=== PATIENT | female | born 1990 | race Two or more races ===

== ENCOUNTER 2022-07-26 09:37 | Inpatient (IN) | payer BC ==
[2022-07-26] MEDS ORDERED: Sodium Chloride 0.9% 10 ML Syringe FLUSH PRN (10:35)
[2022-07-26] MEDS ORDERED: Nalbuphine 10 MG/0.5 ML Syringe IVPUSH PRN (10:35)
[2022-07-26] MEDS ORDERED: Oxytocin/Lactated Ringers 10 UNIT/1,000 ML BAG IV SCH ×3 (10:45→17:01)
[2022-07-26] MEDS ORDERED: Magnesium Sulfate/Water 4 GM in Premix Bag 1 BAG IV ONE (11:26)
[2022-07-26] MEDS ORDERED: Calcium Gluconate 10% 1 GM/10 ML SDV IV PRN (11:26)
[2022-07-26] MEDS ORDERED: Acetaminophen 325 MG Tab PO PRN ×2 (11:29→17:01)
[2022-07-26] MEDS: Lactated Ringers 1,000 ML IV SCH ×4 (12:37→23:06)
[2022-07-26] MEDS: Magnesium Sulfate/Water 40 GM/1,000 ML BAG IV SCH (12:48)
[2022-07-26] MEDS ORDERED: ePHEDrine 50 MG/ML SDV IVPUSH PRN (13:28)
[2022-07-26] MEDS ORDERED: diphenhydrAMINE 50 MG/ML SDV IVPUSH PRN (13:28)
[2022-07-26] MEDS ORDERED: fentaNYL 100 MCG/2 ML SDV EPIDUR PRN (13:28)
[2022-07-26] MEDS ORDERED: Bupivacaine/fentaNYL/NS 100 ML Bag EPIDUR PRN (13:28)
[2022-07-26] MEDS ORDERED: HYDROmorphone 0.5 MG/0.5 ML Syringe ONE (15:15)
[2022-07-26] MEDS ORDERED: Magnesium Hydroxide 400 MG/5 ML Susp 30 ML Cup PO PRN (17:01)
[2022-07-26] MEDS ORDERED: Docusate Sodium 100 MG Cap PO PRN (17:01)
[2022-07-26] MEDS ORDERED: Hydrocortisone Acetate 25 MG Supp RECTAL PRN (17:01)
[2022-07-26] MEDS ORDERED: Witch Hazel Medicated Pads 40/Jar TOP PRN (17:01)
[2022-07-26] MEDS ORDERED: Ibuprofen 600 MG Tab PO PRN (17:01)
[2022-07-26] MEDS ORDERED: Benzocaine/Menthol 20%-0.5% Spray 78 GM Cannister TOP PRN (17:01)
[2022-07-26] MEDS ORDERED: Sodium Chloride 0.9% 10 ML Syringe FLUSH SCH (21:00)
[2022-07-27] MEDS: Magnesium Sulfate/Water 40 GM/1,000 ML BAG IV SCH (08:43)
[2022-07-27] MEDS ORDERED: Prenatal Multivitamin with Calcium/Folic Acid/Iron Tab PO SCH (09:00)
[2022-07-27] MEDS: Lactated Ringers 1,000 ML IV SCH (12:27)
[2022-07-27] MEDS ORDERED: Ropivacaine 0.2% PF 2 MG/ML 20 ML SDV ONE (16:00)
[2022-07-28] MEDS ORDERED: diphenhydrAMINE 50 MG/ML SDV IV ONE (02:20)
[2022-07-28] MEDS ORDERED: Sodium Chloride 0.9% 1,000 ML IV SCH (02:30)
[2022-07-28] MEDS ORDERED: Sodium Chloride 0.9% 250 ML ONE (03:43)
== END 2022-07-28 17:47 | disposition home or self-care (01) | DRG 542 ==
LOC: JD.OBCHECK 09:37 → JD.OB 09:40 → JD.OBCHECK 15:35 → OBSVTOIN 15:36 → INTOOBSV 15:36 → UNDOADMOB 15:36 → JD.OB 15:36 → OBSVTOIN 15:54 → JD.OB 15:54
PROVIDERS: ADMIT Obstetrics & Gynecology; ATTEND Obstetrics & Gynecology
PROC: 10E0XZZ Delivery of Products of Conception, External Approach (ICD-10-PCS; principal; 2022-07-26)
PROC: 10907ZC Drainage of Amniotic Fluid, Therapeutic from Products of Conception, Via Natural or Artificial Opening (ICD-10-PCS; 2022-07-26)
PROC: 0UQC7ZZ Repair Cervix, Via Natural or Artificial Opening (ICD-10-PCS; 2022-07-26)
PROC: 3E0R3BZ Introduction of Anesthetic Agent into Spinal Canal, Percutaneous Approach (ICD-10-PCS; 2022-07-26)
PROC: 00HU33Z Insertion of Infusion Device into Spinal Canal, Percutaneous Approach (ICD-10-PCS; 2022-07-26)
PROC: 30233N1 Transfusion of Nonautologous Red Blood Cells into Peripheral Vein, Percutaneous Approach (ICD-10-PCS; 2022-07-28)
DX: O14.14 Severe pre-eclampsia complicating childbirth (principal); Z37.0 Single live birth; O72.1 Other immediate postpartum hemorrhage; O99.62 Diseases of the digestive system complicating childbirth; K21.9 Gastro-esophageal reflux disease without esophagitis; Z87.891 Personal history of nicotine dependence; O99.03 Anemia complicating the puerperium; D62 Acute posthemorrhagic anemia; Z3A.38 38 weeks gestation of pregnancy
CPT/HCPCS: 36415; 36430; 51702; 59025; 59409; 80053; 82570; 83615; 83735; 84156; 85025; 85027; 85384; 85610; 85730; 86592; 86850; 86900; 86901; 86922; A9270-GY; J1170; J2590; J2795; J3475; J3490; J7050; J7120; P9016